=== PATIENT | male | born 1945 | race Caucasian/White ===

== ENCOUNTER 2020-06-22 13:04 | Inpatient (IN) ==
[2020-06-22 13:39] LABS: Basophils % 0.5 %; Eosinophils # 0.1 K/mcL (0.0-0.6); Eosinophils % 1.7 %; Hematocrit 38.9 % (37.5-50.1); Hemoglobin 12.7 g/dL (12.9-16.9); Immature Granulocytes % 0.2 % (0-4); Lymphocytes # 1.8 K/mcL (0.6-4.6); Lymphocytes % 28.4 %; Mean Corpuscular HGB Conc 32.6 g/dL (31.6-35.5); Mean Corpuscular Hemoglobin 31.8 pg (28.0-33.3); Mean Corpuscular Volume 97.5 fL (83.0-100.0); Mean Platelet Volume 11.2 fL (9.4-12.4); Monocytes # 0.6 K/mcL (0.0-1.3); Monocytes % 9.9 %; Neutrophils # 3.9 K/mcL (1.6-8.9); Platelet Count 215 K/mcL (140-400); Red Blood Count 3.99 M/mcL (4.19-5.50); Red Cell Distribution Width 12.8 % (11.5-14.5); Segmented Neutrophils % 59.3 %; White Blood Count 6.5 K/mcL (4.3-11.1)
[2020-06-22 14:00] LABS: BUN/Creatinine Ratio 22 (6-26); Blood Urea Nitrogen 18 mg/dL (8-23); Calcium 9.4 mg/dL (8.6-10.3); Carbon Dioxide 25 mEq/L (23-29); Chloride 107 mEq/L (98-107); Glucose 100 mg/dL (70-105); Osmolality,Calculated 292 (280-300); Potassium 4.1 mEq/L (3.5-5.1); Sodium 140 mEq/L (136-145); Troponin I < 0.03 ng/mL (< 0.04); eGFR For African Americans > 60 (> 60); eGFR For Non-African Americans > 60 (> 60)
[2020-06-22 14:04] LABS: INR 1.1
[2020-06-22 14:07] LABS: Activated Partial Thrombo Time 31.5 Seconds (26.0-36.0)
[2020-06-22] MEDS ORDERED: Ondansetron 4 MG/2 ML VIAL IVP ONE (16:06)
[2020-06-22] MEDS ORDERED: Naloxone 0.4 MG/ML INJ IVP PRN (16:13)
[2020-06-22] MEDS ORDERED: 0.9 % Sodium Chloride 1,000 ML IVC SCH (16:45)
[2020-06-22] MEDS ORDERED: Isovue-370 500 ML BOTTLE IVP ONE (17:26)
[2020-06-22] MEDS ORDERED: Ondansetron 4 MG/2 ML VIAL IVP PRN (17:27)
[2020-06-22] MEDS ORDERED: Isovue-370 500 ML BOTTLE PO ONE (20:27)
[2020-06-22] MEDS: *HR* Heparin 5,000 UNIT/ML VIAL SQ SCH (21:59)
[2020-06-22] MEDS: Pantoprazole 40 MG VIAL IVP SCH (21:59)
[2020-06-23 05:26] LABS: Basophils % 0.6 %; Eosinophils # 0.1 K/mcL (0.0-0.6); Eosinophils % 2.4 %; Hematocrit 33.1 % (37.5-50.1); Immature Granulocytes % 0.2 % (0-4); Lymphocytes # 2.1 K/mcL (0.6-4.6); Lymphocytes % 41.8 %; Mean Corpuscular HGB Conc 32.3 g/dL (31.6-35.5); Mean Corpuscular Hemoglobin 32.5 pg (28.0-33.3); Mean Corpuscular Volume 100.6 fL (83.0-100.0); Mean Platelet Volume 11.3 fL (9.4-12.4); Monocytes # 0.6 K/mcL (0.0-1.3); Monocytes % 11.4 %; Neutrophils # 2.2 K/mcL (1.6-8.9); Platelet Count 177 K/mcL (140-400); Red Blood Count 3.29 M/mcL (4.19-5.50); Red Cell Distribution Width 12.9 % (11.5-14.5); Segmented Neutrophils % 43.6 %
[2020-06-23 05:36] LABS: BUN/Creatinine Ratio 17 (6-26); Blood Urea Nitrogen 15 mg/dL (8-23); Calcium 8.3 mg/dL (8.6-10.3); Carbon Dioxide 24 mEq/L (23-29); Chloride 109 mEq/L (98-107); Glucose 76 mg/dL (70-105); Osmolality,Calculated 292 (280-300); Potassium 3.7 mEq/L (3.5-5.1); Sodium 141 mEq/L (136-145); eGFR For African Americans > 60 (> 60); eGFR For Non-African Americans > 60 (> 60)
[2020-06-23 06:19] LABS: Hemoglobin 10.7 g/dL (12.9-16.9)
[2020-06-23] MEDS: *HR* Heparin 5,000 UNIT/ML VIAL SQ SCH ×3 (06:48→20:25)
[2020-06-23] MEDS: Pantoprazole 40 MG VIAL IVP SCH (08:34)
[2020-06-23 09:03] LABS: Albumin 3.6 g/dL (3.5-5.7); Albumin/Globulin Ratio 1.6 (1.1-2.2); Bilirubin,Direct 0.1 mg/dL (0.0-0.2); Bilirubin,Indirect 0.3 mg/dL (0.0-1.0); Bilirubin,Total 0.4 mg/dL (0.3-1.0); Globulin 2.2 g/dL (2.4-3.5); Total Protein 5.8 g/dL (6.4-8.9)
[2020-06-23 09:17] LABS: Thyroid Stimulating Hormone 2.593 mcIU/mL (0.340-5.600)
[2020-06-23] MEDS ORDERED: Simethicone 80 MG TAB.CHEW PO PRN (11:49)
[2020-06-23] MEDS: carvediloL 25 MG TABLET PO SCH (16:54)
[2020-06-23] MEDS: Acyclovir 200 MG CAPSULE PO SCH (20:25)
[2020-06-23] MEDS: Lactobacillus 1 EACH CAP.SPRINK PO SCH (20:25)
[2020-06-23] MEDS: Artificial Tears SOLN 15 ML BOTTLE BOTH EYES SCH (20:30)
[2020-06-23] MEDS ORDERED: Topiramate 25 MG TABLET PO SCH (21:00)
[2020-06-23 21:21] LABS: Adenovirus Not Detected (Not Detect); Bordetella Pertussis Not Detected (Not Detect); Chlamydophila pneumoniae Not Detected (Not Detect); Coronavirus 229E Not Detected (Not Detect); Coronavirus HKU1 Not Detected (Not Detect); Coronavirus NL63 Not Detected (Not Detect); Coronavirus OC43 Not Detected (Not Detect); Human Metapneumovirus Not Detected (Not Detect); Human Rhinovirus/Enterovirus Not Detected (Not Detect); Influenza A Subtype 2009 H1 Not Detected (Not Detect); Influenza B Not Detected (Not Detect); Mycoplasma pneumoniae Not Detected (Not Detect); Parainfluenza Virus 1 Not Detected (Not Detect); Parainfluenza Virus 2 Not Detected (Not Detect); Parainfluenza Virus 3 Not Detected (Not Detect); Parainfluenza Virus 4 Not Detected (Not Detect); Respiratory Syncytial Virus Not Detected (Not Detect); SARS-CoV-2 Not Detected (Not Detect)
[2020-06-24] MEDS: *HR* Heparin 5,000 UNIT/ML VIAL SQ SCH ×3 (02:29→19:51)
[2020-06-24 05:18] LABS: Hematocrit 33.9 % (37.5-50.1); Hemoglobin 11.1 g/dL (12.9-16.9); Mean Corpuscular HGB Conc 32.7 g/dL (31.6-35.5); Mean Corpuscular Hemoglobin 32.8 pg (28.0-33.3); Mean Corpuscular Volume 100.3 fL (83.0-100.0); Mean Platelet Volume 11.2 fL (9.4-12.4); Platelet Count 179 K/mcL (140-400); Red Blood Count 3.38 M/mcL (4.19-5.50); Red Cell Distribution Width 13.1 % (11.5-14.5)
[2020-06-24 05:39] LABS: BUN/Creatinine Ratio 18 (6-26); Blood Urea Nitrogen 14 mg/dL (8-23); Calcium 8.8 mg/dL (8.6-10.3); Carbon Dioxide 24 mEq/L (23-29); Chloride 108 mEq/L (98-107); Glucose 91 mg/dL (70-105); Osmolality,Calculated 288 (280-300); Phosphorous 3.5 mg/dL (2.7-4.5); Potassium 3.7 mEq/L (3.5-5.1); Sodium 139 mEq/L (136-145); eGFR For African Americans > 60 (> 60); eGFR For Non-African Americans > 60 (> 60)
[2020-06-24] MEDS: Artificial Tears SOLN 15 ML BOTTLE BOTH EYES SCH ×2 (07:35→19:45)
[2020-06-24] MEDS: Lactobacillus 1 EACH CAP.SPRINK PO SCH ×2 (07:36→19:47)
[2020-06-24] MEDS: Acyclovir 200 MG CAPSULE PO SCH ×2 (07:36→19:46)
[2020-06-24] MEDS: Cholecalciferol (D-3) 1,000 UNIT (25MCG) TABLET PO SCH (07:37)
[2020-06-24] MEDS: FLUoxetine HCl 10 MG CAPSULE PO SCH (07:37)
[2020-06-24] MEDS: carvediloL 25 MG TABLET PO SCH ×2 (07:41→18:12)
[2020-06-24] MEDS: Pantoprazole 40 MG VIAL IVP SCH (07:45)
[2020-06-24] MEDS ORDERED: Metoclopramide 10 MG/2 ML VIAL IVP ONE (10:42)
[2020-06-24] MEDS ORDERED: Ketorolac 15 MG/ML VIAL IVP ONE (10:42)
[2020-06-24] MEDS ORDERED: chlorproMAZINE 25 MG in 0.9 % Sodium Chloride 100 ML IVPB ONE (10:43)
[2020-06-24] MEDS ORDERED: Lidocaine -MPF 2% 2 ML VIAL ONE (12:16)
[2020-06-24] MEDS ORDERED: Gadolinium Contrast Agent (WT Based) IV PRN (13:34)
[2020-06-24] MEDS: Mirtazapine 15 MG TABLET PO SCH (19:47)
[2020-06-25] MEDS: *HR* Heparin 5,000 UNIT/ML VIAL SQ SCH ×3 (03:26→19:27)
[2020-06-25 06:13] LABS: Hematocrit 35.6 % (37.5-50.1); Hemoglobin 11.2 g/dL (12.9-16.9); Mean Corpuscular HGB Conc 31.5 g/dL (31.6-35.5); Mean Corpuscular Hemoglobin 31.6 pg (28.0-33.3); Mean Corpuscular Volume 100.6 fL (83.0-100.0); Mean Platelet Volume 11.5 fL (9.4-12.4); Platelet Count 183 K/mcL (140-400); Red Blood Count 3.54 M/mcL (4.19-5.50); Red Cell Distribution Width 13.1 % (11.5-14.5); White Blood Count 5.6 K/mcL (4.3-11.1)
[2020-06-25] MEDS: Cholecalciferol (D-3) 1,000 UNIT (25MCG) TABLET PO SCH (08:23)
[2020-06-25] MEDS: Acyclovir 200 MG CAPSULE PO SCH ×2 (08:23→19:25)
[2020-06-25] MEDS: FLUoxetine HCl 10 MG CAPSULE PO SCH (08:23)
[2020-06-25] MEDS: Lactobacillus 1 EACH CAP.SPRINK PO SCH (08:23)
[2020-06-25] MEDS: Artificial Tears SOLN 15 ML BOTTLE BOTH EYES SCH ×2 (08:24→19:25)
[2020-06-25] MEDS: Pantoprazole 40 MG VIAL IVP SCH (08:24)
[2020-06-25] MEDS: carvediloL 25 MG TABLET PO SCH ×2 (08:27→16:36)
[2020-06-25 10:53] LABS: Tissue Transglutaminase IgA <2 U/mL (0-3)
[2020-06-25] MEDS: Mirtazapine 15 MG TABLET PO SCH (19:26)
[2020-06-25] MEDS ORDERED: Divalproex (24 HR) 250 MG TABLET PO SCH ×2 (21:00)
[2020-06-26] MEDS: *HR* Heparin 5,000 UNIT/ML VIAL SQ SCH (04:52)
[2020-06-26 07:34] VITALS: BP 129/65
[2020-06-26] MEDS: carvediloL 25 MG TABLET PO SCH (08:24)
[2020-06-26] MEDS: Cholecalciferol (D-3) 1,000 UNIT (25MCG) TABLET PO SCH (08:24)
[2020-06-26] MEDS: Acyclovir 200 MG CAPSULE PO SCH (08:24)
[2020-06-26] MEDS: Artificial Tears SOLN 15 ML BOTTLE BOTH EYES SCH (08:25)
[2020-06-26] MEDS: Pantoprazole 40 MG VIAL IVP SCH (08:25)
[2020-06-26 18:20] LABS: Tissue Transglutaminase IgG 2 U/mL (0-5)
== END 2020-06-26 11:28 | disposition home or self-care (01) | DRG 103 ==
LOC: EMEROOARM 13:04 → 3BNU 13:04
PROVIDERS: ADMIT Family Medicine; ATTEND Family Medicine
PROC: ENDOEBX (2020-06-24 17:30)